=== PATIENT | male | born 1950 | race Caucasian/White ===

== ENCOUNTER 2024-08-10 10:20 | Outpatient (CLI) | payer MEDICARE, OTHER ==
--- NOTE | 2024-08-11 16:47 | RADIOLOGY REPORT ---
PROCEDURE: MR MRI LUMBAR SPINE INDICATION: PAIN IN RIGHT HIP, LOW BACK PAIN Exam Date: 08/10/2024 10:47 AM COMPARISON: None TECHNIQUE: MRI lumbar spine without intravenous contrast. FINDINGS: The lumbar alignment is intact. There are degenerative endplate changes including modic endplate ch anges with anterior and lateral osteophytes throughout the lumbar spine. The visualized distal spinal cord and conus medullaris are within normal limits. The conus medullaris appears to terminate withi n normal limits. The visualized retroperitoneal and paraspinal soft tissues are unremarkable. The following axial levels are detailed below: T12-L1: Unremarkable. L1-L2: There is a moderate circumferential disc bulge complicated by facet arthropathy associated w ith mild to moderate left neuroforaminal stenosis. No significant central canal stenosis. L2-L3: There is a moderate circumferential disc bulge complicated by facet arthropathy associated w ith mild to moderate bilateral neuroforaminal stenosis. No significant central canal stenosis. L3-L4: There is a severe circumferential disc bulge complicated by facet arthropathy narrowing the central canal to 7 mm with associated moderate to severe bilateral neuroforaminal stenosis. L4-L5: There is a severe circumferential disc bulge complicated by facet arthropathy narrowing the central canal to 7 mm with associated moderate to severe bilateral neuroforaminal stenosis left great er than right. L5-S1: There is a moderate circumferential disc bulge complicated by facet arthropathy associated wi th mild to moderate bilateral neuroforaminal stenosis. No significant central canal stenosis. IMPRESSION: 1. Multilevel moderate to advanced degenerative disease. Severe central canal stenosis L3-4 and L4-5 . Neural foraminal stenosis as above. HS:Y
--- NOTE | 2024-08-11 18:05 | RADIOLOGY REPORT ---
EXAM: MR MRI LOWER EXTREMITY RIGHT INDICATION: PAIN IN RIGHT HIP, LOW BACK PAIN TECHNIQUE: Multiplanar, multisequence imaging of the right proximal femur without contrast including the right hip COMPARISON: None FINDINGS: BONES: No MR evidence of an acute fracture, osseous contusion, or aggressive focal osseous lesion. MUSCLES: Normal signal intensity and morphology. TENDONS: Intact. LIGAMENTS: Intact. JOINT SPACES: No joint effusion. NEUROVASCULAR: Normal. OTHER: Allowing for limitation, no significant tearing of the visualized labrum. Small fat containing right inguinal hernia IMPRESSION: 1. No MR evidence of significant internal derangement.
== END 2024-08-10 23:59 | disposition home or self-care (01) ==
LOC: MRI02 10:20
PROVIDERS: ATTEND Internal Medicine
DX: M51.17 Intervertebral disc disorders with radiculopathy, lumbosacral region (principal); M25.551 Pain in right hip; M54.50 Low back pain, unspecified; M47.27 Other spondylosis with radiculopathy, lumbosacral region
CPT/HCPCS: 72148; 73721